=== PATIENT | male | born 1950 | race Caucasian/White ===

== ENCOUNTER 2019-04-18 10:27 | Inpatient (IN) | payer OTHER, MEDICARE ==
[2019-04-18] MEDS ORDERED: methylPREDNISolone SOD SUCCI 125 MG/2 ML VIAL IV STA (10:43)
[2019-04-18] MEDS ORDERED: IPRATROPIUM-ALBUTEROL 3 ML NEB INHALATION STA (10:43)
--- NOTE | 2019-04-18 10:49 | ED ---
General Adult HPI - General Chief complaint: Shortness of Breath Stated complaint: DONNA Time Seen by Provider: 04/18/19 10:29 Source: patient, RN notes reviewed Mode of arrival: EMS Limitations: no limitations - History of Present Illness Initial comments: Patient is a pleasant 69-year-old male presenting to the emergency Department with difficulty in breathing. Onset of symptoms was just a couple of days ago. Patient believes he has had some fevers. Patient has some chest congestion. Patient is able to cough up mucus that has been green at times. Patient does have some mild leg swelling however this is chronic and actually somewhat improved for him. No calf pain. No history of COPD however patient is a former smoker. - Related Data Home Medications Medication Instructions Recorded Confirmed Atorvastatin [Lipitor] 20 mg PO HS 04/18/19 04/18/19 Fluticasone Nasal [place] [Flonase 1 - 2 spr EA NOSTRIL DAILY PRN 04/18/19 04/18/19 Nasal [place]] Lidocaine 5% Oint [Xylocaine 5% 1 applic TOPICAL DAILY PRN 04/18/19 04/18/19 Oint] Naproxen 500 mg PO BID PRN 04/18/19 04/18/19 glipiZIDE [Glucotrol] 5 mg PO AC-BRKFST 04/18/19 04/18/19 metFORMIN HCL [metFORMIN HCL ER 1,000 mg PO DAILY 04/18/19 04/18/19 Osmotic] Allergies Allergy/AdvReac Type Severity Reaction Status Date / Time No Known Allergies Allergy Verified 04/18/19 11:38 Review of Systems ROS Statement: Those systems with pertinent positive or pertinent negative responses have been documented in the HPI. ROS Other: All systems not noted in ROS Statement are negative. Constitutional: Reports: fever Eyes: Denies: eye pain ENT: Denies: ear pain Respiratory: Reports: cough, dyspnea Cardiovascular: Denies: chest pain Endocrine: Reports: fatigue Gastrointestinal: Denies: abdominal pain Genitourinary: Denies: dysuria Musculoskeletal: Denies: back pain Skin: Denies: rash Neurological: Denies: weakness Past Medical History Past Medical History: Diabetes Mellitus Additional Past Medical History / Comment(s): DM type 2 History of Any Multi-Drug Resistant Organisms: None Reported Past Surgical History: Hernia Repair Additional Past Surgical History / Comment(s): hernia surgery x3, benign tumor removal x2 in lower back Past Psychological History: PTSD Smoking Status: Former smoker Past Alcohol Use History: None Reported Past Drug Use History: Marijuana General Exam Limitations: no limitations General appearance: alert Head exam: Present: normocephalic Eye exam: Present: normal appearance, PERRL ENT exam: Present: normal oropharynx Neck exam: Present: normal inspection Respiratory exam: Present: wheezes, decreased breath sounds Cardiovascular Exam: Present: regular rate, normal rhythm GI/Abdominal exam: Present: soft. Absent: tenderness Extremities exam: Present: pedal edema (+1 bilateral). Absent: calf tenderness Neurological exam: Present: alert Psychiatric exam: Present: normal affect, normal mood Skin exam: Present: normal color Course Vital Signs 04/18/19 04/18/19 04/18/19 10:28 10:38 11:39 Temperature 98.1 F Pulse Rate 92 90 Respiratory 24 24 Rate Blood Pressure 170/98 O2 Sat by Pulse 93 L Oximetry 04/18/19 04/18/19 11:49 12:21 Temperature 97.7 F Pulse Rate 88 93 Respiratory 16 Rate Blood Pressure 161/74 O2 Sat by Pulse 95 Oximetry - Reevaluation(s) Reevaluation #1: 04/18/19 14:33 There is concern for sepsis diagnosed at 1433. A culture and lactic acid have been ordered. IV antibiotics will be ordered. EKG Findings - EKG Comments: EKG Findings:: Normal sinus rhythm and 90. HI 192. QRS 102. QT 370. QTc 452. Normal axis. Normal QRS. No acute ST change. Medical Decision Making - Medical Decision Making Patient reevaluated and updated. Dr. Bang has been paged for admission covering for Dr. Paige. - Lab Data Result diagrams: 04/18/19 10:48 04/18/19 10:48 Lab Results 04/18/19 04/18/19 04/18/19 Range/Units 10:48 10:48 10:48 WBC 9.6 (3.8-10.6) k/uL RBC 4.55 (4.30-5.90) m/uL Hgb 13.2 (13.0-17.5) gm/dL Hct 41.0 (39.0-53.0) % MCV 90.1 (80.0-100.0) fL MCH 29.0 (25.0-35.0) pg MCHC 32.2 (31.0-37.0) g/dL RDW 13.8 (11.5-15.5) % Plt Count 363 (150-450) k/uL Neutrophils % 69 % Lymphocytes % 20 % Monocytes % 7 % Eosinophils % 0 % Basophils % 1 % Neutrophils # 6.6 (1.3-7.7) k/uL Lymphocytes # 2.0 (1.0-4.8) k/uL Monocytes # 0.6 (0-1.0) k/uL Eosinophils # 0.0 (0-0.7) k/uL Basophils # 0.1 (0-0.2) k/uL PT (9.0-12.0) sec INR (<1.2) APTT (22.0-30.0) sec D-Dimer (<0.60) mg/L FEU Sodium 139 (137-145) mmol/L Potassium 4.2 (3.5-5.1) mmol/L Chloride 102 (98-107) mmol/L Carbon Dioxide 31 H (22-30) mmol/L Anion Gap 6 mmol/L BUN 12 (9-20) mg/dL Creatinine 0.54 L (0.66-1.25) mg/dL Est GFR (CKD-EPI)AfAm >90 (>60 ml/min/1.73 sqM) Est GFR (CKD-EPI)NonAf >90 (>60 ml/min/1.73 sqM) Glucose 146 H (74-99) mg/dL Plasma Lactic Acid Mateo 1.7 (0.7-2.0) mmol/L Calcium 8.6 (8.4-10.2) mg/dL Total Bilirubin 0.6 (0.2-1.3) mg/dL AST 62 H (17-59) U/L ALT 41 (4-49) U/L Alkaline Phosphatase 127 H (38-126) U/L NT-Pro-B Natriuret Pep pg/mL Total Protein 7.2 (6.3-8.2) g/dL Albumin 3.7 (3.5-5.0) g/dL Influenza Type A RNA (Not Detectd) Influenza Type B (PCR) (Not Detectd) 04/18/19 04/18/19 04/18/19 Range/Units 10:48 10:48 10:48 WBC (3.8-10.6) k/uL RBC (4.30-5.90) m/uL Hgb (13.0-17.5) gm/dL Hct (39.0-53.0) % MCV (80.0-100.0) fL MCH (25.0-35.0) pg MCHC (31.0-37.0) g/dL RDW (11.5-15.5) % Plt Count (150-450) k/uL Neutrophils % % Lymphocytes % % Monocytes % % Eosinophils % % Basophils % % Neutrophils # (1.3-7.7) k/uL Lymphocytes # (1.0-4.8) k/uL Monocytes # (0-1.0) k/uL Eosinophils # (0-0.7) k/uL Basophils # (0-0.2) k/uL PT 10.4 (9.0-12.0) sec INR 1.0 (<1.2) APTT 24.4 (22.0-30.0) sec D-Dimer 1.90 H (<0.60) mg/L FEU Sodium (137-145) mmol/L Potassium (3.5-5.1) mmol/L Chloride (98-107) mmol/L Carbon Dioxide (22-30) mmol/L Anion Gap mmol/L BUN (9-20) mg/dL Creatinine (0.66-1.25) mg/dL Est GFR (CKD-EPI)AfAm (>60 ml/min/1.73 sqM) Est GFR (CKD-EPI)NonAf (>60 ml/min/1.73 sqM) Glucose (74-99) mg/dL Plasma Lactic Acid Mateo (0.7-2.0) mmol/L Calcium (8.4-10.2) mg/dL Total Bilirubin (0.2-1.3) mg/dL AST (17-59) U/L ALT (4-49) U/L Alkaline Phosphatase (38-126) U/L NT-Pro-B Natriuret Pep 242 pg/mL Total Protein (6.3-8.2) g/dL Albumin (3.5-5.0) g/dL Influenza Type A RNA (Not Detectd) Influenza Type B (PCR) (Not Detectd) 04/18/19 Range/Units 11:40 WBC (3.8-10.6) k/uL RBC (4.30-5.90) m/uL Hgb (13.0-17.5) gm/dL Hct (39.0-53.0) % MCV (80.0-100.0) fL MCH (25.0-35.0) pg MCHC (31.0-37.0) g/dL RDW (11.5-15.5) % Plt Count (150-450) k/uL Neutrophils % % Lymphocytes % % Monocytes % % Eosinophils % % Basophils % % Neutrophils # (1.3-7.7) k/uL Lymphocytes # (1.0-4.8) k/uL Monocytes # (0-1.0) k/uL Eosinophils # (0-0.7) k/uL Basophils # (0-0.2) k/uL PT (9.0-12.0) sec INR (<1.2) APTT (22.0-30.0) sec D-Dimer (<0.60) mg/L FEU Sodium (137-145) mmol/L Potassium (3.5-5.1) mmol/L Chloride (98-107) mmol/L Carbon Dioxide (22-30) mmol/L Anion Gap mmol/L BUN (9-20) mg/dL Creatinine (0.66-1.25) mg/dL Est GFR (CKD-EPI)AfAm (>60 ml/min/1.73 sqM) Est GFR (CKD-EPI)NonAf (>60 ml/min/1.73 sqM) Glucose (74-99) mg/dL Plasma Lactic Acid Mateo (0.7-2.0) mmol/L Calcium (8.4-10.2) mg/dL Total Bilirubin (0.2-1.3) mg/dL AST (17-59) U/L ALT (4-49) U/L Alkaline Phosphatase (38-126) U/L NT-Pro-B Natriuret Pep pg/mL Total Protein (6.3-8.2) g/dL Albumin (3.5-5.0) g/dL Influenza Type A RNA Not Detected (Not Detectd) Influenza Type B (PCR) Not Detected (Not Detectd) - Radiology Data Radiology results: report reviewed (CT angios chest shows no pulmonary embolism. Evaluation of segmental arteries. Groundglass opacities throughout the lungs for possible multifocal pneumonia inflammation for pulmonary edema. Mild aneurysm dilation of the descending thoracic aorta), image reviewed (Chest x-ray shows cardiomegaly and pulmonary venous congestion) Critical Care Time Critical Care Time: Yes Total Critical Care Time: 33 Disposition Clinical Impression: Multifocal pneumonia, Sepsis Disposition: ADMITTED IP TO THIS HOSP Is patient prescribed a controlled substance at d/c from ED?: No Referrals: Joe Paige MD [Primary Care Provider] - 1-2 days Decision Time: 14:33
[2019-04-18 11:05] LABS: Basophils # (A) 0.1 k/uL (0-0.2); Basophils % (A) 1 %; Eosinophils % (A) 0 %; HGB 13.2 gm/dL (13.0-17.5); Lymphocytes % (A) 20 %; MCHC 32.2 g/dL (31.0-37.0); MCV 90.1 fL (80.0-100.0); Mean Platelet Volume 7.3; Monocytes # (A) 0.6 k/uL (0-1.0); Monocytes % (A) 7 %; Neutrophils # (A) 6.6 k/uL (1.3-7.7); Neutrophils % (A) 69 %; Platelet Count 363 k/uL (150-450); RBC 4.55 m/uL (4.30-5.90); RDW 13.8 % (11.5-15.5); WBC 9.6 k/uL (3.8-10.6)
[2019-04-18 11:16] LABS: ALT 41 U/L (4-49); AST 62 U/L (17-59); African American GFR (CKD) >90 (>60 ml/min/1.73 sqM); Albumin 3.7 g/dL (3.5-5.0); Alkaline Phosphatase 127 U/L (38-126); Anion Gap 6 mmol/L; Blood Urea Nitrogen 12 mg/dL (9-20); Calcium 8.6 mg/dL (8.4-10.2); Carbon Dioxide 31 mmol/L (22-30); Chloride 102 mmol/L (98-107); Glucose 146 mg/dL (74-99); Non-African American GFR(CKD) >90 (>60 ml/min/1.73 sqM); Potassium 4.2 mmol/L (3.5-5.1); Sodium 139 mmol/L (137-145); Total Bilirubin 0.6 mg/dL (0.2-1.3); Total Protein 7.2 g/dL (6.3-8.2)
[2019-04-18 11:34] LABS: Partial Thromboplastin Time 24.4 sec (22.0-30.0); Prothrombin Time 10.4 sec (9.0-12.0)
--- NOTE | 2019-04-18 13:17 | XR ---
EXAMINATION TYPE: XR chest 2V DATE OF EXAM: 04/18/2019 COMPARISON: 04/20/2013 HISTORY: Shortness of breath TECHNIQUE: Frontal and lateral views of the chest are obtained. FINDINGS: Scattered senescent parenchymal changes noted. Hyperinflation compatible with COPD. There is cardiomegaly with pulmonary venous congestion and possible interstitial edema. Underlying in filtrates of other etiology are difficult to exclude. Correlate clinically and progress studies are a dvised. Mediastinal structures are stable and grossly unremarkable. No evidence for hilar prominence. Degenerative changes dorsal spine. IMPRESSION: 1. There is cardiomegaly with pulmonary venous congestion and possible interstitial edema. Underlying infiltrates of other etiology are difficult to exclude. Correlate clinically and progress studies taj coburn.
--- NOTE | 2019-04-18 13:26 | CT ---
EXAMINATION TYPE: CT angio chest DATE OF EXAM: 04/18/2019 COMPARISON: NONE HISTORY: severe shortness of breath CT DLP: 1021.9 mGycm. Automated Exposure Control for Dose Reduction was Utilized. CONTRAST: CTA scan of the thorax is performed with IV Contrast, patient injected with 100 mL of Isovue 370, pul monary embolism protocol. MIP Images are created on CT scanner and reviewed. FINDINGS: LUNGS: Multifocal groundglass opacities are seen throughout the lungs most pronounced at the lung api ajith. Given the nondependent gradient effect these much more likely relate to multifocal pneumonia rat her than confluent pulmonary edema. More confluent right middle lobe airspace disease with air bronch ograms is also seen on series 401 image 87. There is no pleural effusion or pneumothorax seen. The tracheobronchial tree is patent. MEDIASTINUM: There is suboptimal enhancement of the pulmonary artery and its branches, there is no ce ntral evidence for pulmonary embolism. Nondiagnostic evaluation of the subsegmental pulmonary arterie s. There are no greater than 1 cm hilar or mediastinal lymph nodes. No cardiomegaly or pericardial effusion is seen. Mild aneurysmal dilatation of the descending thoracic aorta measuring 3.7 cm. OTHER: No additional significant abnormality is seen. IMPRESSION: 1. No central pulmonary embolus. Suboptimal bolus timing rendering evaluation of the subsegmental pul monary arteries nondiagnostic. 2. Innumerable multifocal groundglass opacities throughout both lungs. Primary diagnostic considerati on is for multifocal pneumonia. Inflammatory etiology or confluent areas of pulmonary edema are consi dered less likely. 3. Mild aneurysmal dilatation of the descending thoracic aorta.
[2019-04-18] MEDS ORDERED: PNEUMONIA PROTOCOL UTILIZED 1 EACH MISC PO PRN (14:34)
[2019-04-18] MEDS ORDERED: LEVOFLOXACIN 750MG-D5W PMX 750 MG in DEXTROSE/WATER 1 150ML.BAG IVPB STA (14:34)
[2019-04-18] MEDS ORDERED: IPRATROPIUM-ALBUTEROL 3 ML NEB INHALATION PRN (14:34)
[2019-04-18] MEDS ORDERED: PIPERACILLIN-TAZOBACTAM 3.375 GM in SODIUM CHLORIDE 0.9% 100 ML IVPB STA (14:34)
[2019-04-18] MEDS: SODIUM CHLORIDE 0.9% 1,000 ML IV SCH (17:19)
[2019-04-18] MEDS: OSELTAMIVIR 75 MG CAP PO SCH ×2 (17:21→21:22)
[2019-04-18] MEDS: IPRATROPIUM-ALBUTEROL 3 ML NEB INHALATION SCH ×2 (17:30→20:33)
[2019-04-19] MEDS: PIPERACILLIN-TAZOBACTAM 3.375 GM in SODIUM CHLORIDE 0.9% 100 ML IVPB SCH ×3 (01:10→17:22)
[2019-04-19] MEDS: SODIUM CHLORIDE 0.9% 1,000 ML IV SCH ×2 (06:14→12:22)
[2019-04-19] MEDS: IPRATROPIUM-ALBUTEROL 3 ML NEB INHALATION SCH ×4 (07:40→19:22)
[2019-04-19] MEDS: OSELTAMIVIR 75 MG CAP PO SCH ×2 (07:51→21:22)
--- NOTE | 2019-04-19 08:10 | XR ---
EXAMINATION TYPE: XR chest 2V DATE OF EXAM: 04/19/2019 COMPARISON: 04/18/2019 TECHNIQUE: PA and lateral views submitted. HISTORY: Difficulty breathing FINDINGS: Heart is prominent. No pleural effusion or pneumothorax. Interval slight reduction in the appearance of the interstitium. Bilateral pleural thickening. Hypertrophic and degenerative change of the spine. Stable pleural-based thickening. IMPRESSION: 1. Persistent increased interstitium slightly improved may represent mild venous congestion or inters titial pneumonitis, pneumonia.
[2019-04-19] MEDS: predniSONE 10 MG TAB PO SCH (15:20)
[2019-04-19] MEDS: LEVOFLOXACIN 750MG-D5W PMX 750 MG in DEXTROSE/WATER 1 150ML.BAG IVPB SCH (15:20)
[2019-04-19] MEDS: SYMBICORT 160-4.5 MCG INHALER INHALATION SCH (19:22)
[2019-04-19 20:32] LABS: Glucose,Whole Blood 264 mg/dL (75-99)
--- NOTE | 2019-04-19 20:38 | CONS ---
CONSULTATION PULMONARY/CRITICAL CARE CONSULTATION: DATE OF SERVICE: 04/19/2019 This is a 69-year-old male whom I am seeing have seen because of "shortness of breath." He apparently was brought by EMS to the emergency room yesterday on April 18 at 10:27 a.m. The patient presented with complaints of progressive shortness of breath. He apparently had been having symptoms for a couple of days and the symptoms got worse. In addition, he had fever and chills, cough, chest congestion, chest tightness and phlegm production. The phlegm was described as being "brown." There was no blood. The patient denied any chest pain or chest discomfort. There was no nausea, vomiting or diarrhea. There were no genitourinary complaints. His other major complaint was leg swelling. The patient is feeling better today. He has only been in the hospital for about a day and a half or so. His breathing has improved; probably 60% to 70% improved. The patient's primary care physician is Dr. Joe Paige. He apparently has never seen a lung doctor in the past. HOME MEDICATIONS: His home medications include Lipitor, Flonase nasal spray, xylocaine ointment, naproxen, Glucotrol and metformin. ALLERGIES: DENIED. MEDICAL HISTORY: Positive for diabetes mellitus, hyperlipidemia and probable COPD from previous tobacco use. SURGICAL HISTORY: Surgical history includes hernia repair. He has also had benign tumor removal x2 in his lower back. He does suffer from post-traumatic stress disorder. SOCIAL HISTORY: Positive for about 25 years or so of tobacco use. He does not smoke currently. He denies any alcohol use. He does smoke marijuana. FAMILY HISTORY: Noncontributory. Both mother and father were apparently relatively healthy. REVIEW OF SYSTEMS: CONSTITUTIONAL: Fever, chills. NEUROLOGIC: Negative. HEENT: Negative. CARDIOVASCULAR: Negative. PULMONARY: Shortness of breath, chest tightness, wheezing, cough, chest congestion and brown phlegm production. GI: Negative. : Negative. RHEUMATOLOGIC: Negative. IMMUNOLOGIC: Negative. ENDOCRINOLOGIC: Negative. DERMATOLOGIC: Negative. PHYSICAL EXAMINATION: VITAL SIGNS: Current vital signs are reviewed. His temperature is 97.5, heart rate 93, respiratory rate 16, blood pressure 157/81, mean 106, room-air saturation 94%. GENERAL APPEARANCE: He appears in no acute distress. There is no audible wheezing, use of accessory muscles or conversational dyspnea. HEENT EXAMINATION: Grossly unremarkable. No supplemental oxygen at this time. NECK: Supple. Full range of motion. No adenopathy. Neck veins are flat. CARDIOVASCULAR EXAMINATION: Regular rhythm and rate. S1, S2 normal. Heart sounds are distant. Heart rate is 88 beats per minute. LUNGS: Some coarse expiratory rhonchi and wheezes. Breath sounds are diminished. There is prolongation. ABDOMEN: Soft but obese. Bowel sounds are heard. EXTREMITIES: Intact. Minimal edema. No cyanosis or clubbing. SKIN: Without rash. NEUROLOGIC: Neurologic examination is brief but nonfocal. LAB DATA: Reviewed. White count 9.6, hemoglobin 13.2, hematocrit 41.0, platelet count 363,000. PT, INR, PTT all normal. D-dimer was 1.90. Sodium 139, potassium 4.2, chloride 102, CO2 31. Anion gap is 6. BUN and creatinine were 12 and 0.54. Glucose 146. Lactate 1.7, AST 62. N-terminal proBNP was 242. Influenza A and B were negative. A CT angiogram was done. It was done on April 18. It showed no central pulmonary embolus. There were also innumerable multifocal ground-glass opacities throughout both lungs. Considerations include multifocal pneumonia or other inflammatory disease processes. Areas of pulmonary edema are also considered possible. Microbiology, including blood cultures, are currently pending or negative. MEDICATIONS: Medications are reviewed. He is on updrafts with albuterol and Atrovent, Levaquin, Tamiflu, Zosyn and a basic IV at 100 mL/hour. ASSESSMENT: 1. Chronic obstructive pulmonary disease exacerbation complicated by purulent tracheobronchitis, without kimberly pneumonia. 2. Possible patchy areas of pneumonitis or other inflammatory lung process. 3. History of diabetes mellitus. 4. History of hyperlipidemia. 5. Prior history of tobacco use. 6. Obesity. 7. History of post-traumatic stress disorder. 8. History of marijuana use. PLAN: The patient is on appropriate medications. I will add Symbicort 160/4.5 two puffs twice a day. Additional recommendations and suggestions are forthcoming. Currently the patient is on albuterol and Atrovent updrafts, antibiotics in the form of Levaquin and Zosyn, and Tamiflu. Additional recommendations and suggestions are forthcoming. I will add some corticosteroids to the regimen. Will also add Symbicort. MMODL / IJN: [id number] /
--- NOTE | 2019-04-19 21:52 | P.HPIM ---
History of Present Illness H&P Date: 04/19/19 Chief Complaint: Shortness of breath History of presenting complaint: This is a 69-year-old patient of Dr. Joe Paige. Chronic stable medical conditions include diabetes, Eva arthritis, GERD. For 3 days patient started becoming increasingly short of breath. Cough with green sputum. Positive fever and chills. Decreased appetite. Wheezing. Not getting better. Getting worse. Review of systems: GEN.: Fever and chills times EYES: None HEENT: None NECK: None RESPIRATORY: As above CARDIOVASCULAR: None GASTROINTESTINAL: Heartburn GENITOURINARY: None MUSCULOSKELETAL: [Pain in any joints LYMPHATICS: None HEMATOLOGICAL: None PSYCHIATRY: None NEUROLOGICAL: None Past medical history to include: Diabetes, Eva arthritis, post traumatic stress disorder, GERD Social history: Patient smoked a pack and half a close to 40 years, stopped 15 years ago. Ventricular: The past. Does marijuana occasionally. Lives alone Family history: Patient does not know his parents Physical examination: VITAL SIGNS: [98.1-92-24-170/98, 93% on 2 L-upon presentation GENERAL: [BMI 46.1, sitting up tired. EYES: Pupils equal. Conjunctiva normal. HEENT: External appearance of nose and ears normal, oral cavity grossly normal. NECK: JVD not raised; masses not palpable. HEART: First and second heart sounds are normal; no edema. LUNGS: Respiratory rate increased, decreased breath sounds prolonged expiration and wheezing. ABDOMEN: Soft, nontender, liver spleen not palpable, no masses palpable. PSYCH: [Alert and oriented x3; mood and affect anxious l. NEUROLOGICAL: Cranial nerves grossly intact; no facial asymmetry, power and sensation grossly intact. LYMPHATICS: No lymph nodes palpable in the axilla and neck INVESTIGATIONS, reviewed in the clinical context: White count 9.6 include 13.2 platelets 363 potassium 4.2 bun 12 creatinine 0.54 ProBNP 242 Accu-Cheks 264 Influenza type A, type B-both negative Chest x-ray film personally reviewed by me-bilateral scattered infiltrates Assessment: -Acute COPD exacerbation in an ex-smoker -Bilateral scattered infiltrates most suggestive of viral pneumonitis, bacterial infection cannot be ruled out -Diabetes mellitus type 2, uncontrolled with hyperglycemia Plan: Started on IV Zosyn and Levaquin. DuoNeb. IV fluids. Oral steroids. Home medications resumed. Accu-Cheks will be followed. Gonzálezx for DVT prophylaxis. Care was discussed with the patient question answered. Pulmonary was consulted Past Medical History Past Medical History: Diabetes Mellitus Additional Past Medical History / Comment(s): DM type 2 History of Any Multi-Drug Resistant Organisms: None Reported Past Surgical History: Hernia Repair Additional Past Surgical History / Comment(s): hernia surgery x3, benign tumor removal x2 in lower back, appendix removed as a child Past Anesthesia/Blood Transfusion Reactions: No Reported Reaction Past Psychological History: PTSD Smoking Status: Former smoker Past Alcohol Use History: None Reported Past Drug Use History: Marijuana - Past Family History Father Additional Family Medical History / Comment(s): patient does not know his parents Mother Additional Family Medical History / Comment(s): patient does not know his parents Medications and Allergies Home Medications Medication Instructions Recorded Confirmed Type Atorvastatin [Lipitor] 20 mg PO HS 04/18/19 04/18/19 History Fluticasone Nasal [place] [Flonase 1 - 2 spr EA NOSTRIL DAILY PRN 04/18/19 04/18/19 History Nasal [place]] Lidocaine 5% Oint [Xylocaine 5% 1 applic TOPICAL DAILY PRN 04/18/19 04/18/19 History Oint] Naproxen 500 mg PO BID PRN 04/18/19 04/18/19 History glipiZIDE [Glucotrol] 5 mg PO AC-BRKFST 04/18/19 04/18/19 History metFORMIN HCL [metFORMIN HCL ER 1,000 mg PO DAILY 04/18/19 04/18/19 History Osmotic] Allergies Allergy/AdvReac Type Severity Reaction Status Date / Time No Known Allergies Allergy Verified 04/18/19 11:38 Physical Exam Vitals: Vital Signs Temp Pulse Pulse Resp BP BP Pulse Ox 04/19/19 07:55 97.8 F 96 21 157/98 92 L 04/19/19 07:52 92 18 04/19/19 07:41 94 18 94 L 04/18/19 20:47 96 04/18/19 20:33 92 04/18/19 18:26 98.0 F 89 16 164/85 99 04/18/19 17:43 94 04/18/19 17:30 90 04/18/19 17:06 92 18 144/67 94 L 04/18/19 12:21 97.7 F 93 16 161/74 95 02/11/20 11:49 88 04/18/19 11:39 90 Intake and Output 04/18/19 04/19/19 04/19/19 22:59 06:59 14:59 Other: # Voids 1 Weight 137.438 kg Results CBC & Chem 7: 04/18/19 10:48 04/18/19 10:48 Labs: Abnormal Lab Results - Last 24 Hours (Table) 04/18/19 04/18/19 Range/Units 10:48 10:48 D-Dimer 1.90 H (<0.60) mg/L FEU Carbon Dioxide 31 H (22-30) mmol/L Creatinine 0.54 L (0.66-1.25) mg/dL Glucose 146 H (74-99) mg/dL AST 62 H (17-59) U/L Alkaline Phosphatase 127 H (38-126) U/L Thrombosis Risk Factor Assmnt - Choose All That Apply Any of the Below Risk Factors Present?: No Other Risk Factors: No Other congenital or acquired thrombophilia - If yes, enter type in comment: No Thrombosis Risk Factor Assessment Level: Very Low Risk
[2019-04-20] MEDS: PIPERACILLIN-TAZOBACTAM 3.375 GM in SODIUM CHLORIDE 0.9% 100 ML IVPB SCH ×3 (00:31→17:40)
[2019-04-20] MEDS: ENOXAPARIN 40 MG/0.4 ML SYRINGE SQ SCH ×2 (00:31→07:34)
[2019-04-20] MEDS: SODIUM CHLORIDE 0.9% 1,000 ML IV SCH ×3 (06:50→16:53)
[2019-04-20 07:04] LABS: Glucose,Whole Blood 161 mg/dL (75-99)
[2019-04-20] MEDS: OSELTAMIVIR 75 MG CAP PO SCH ×2 (07:29→21:10)
[2019-04-20] MEDS: predniSONE 10 MG TAB PO SCH (07:34)
[2019-04-20] MEDS: IPRATROPIUM-ALBUTEROL 3 ML NEB INHALATION SCH ×4 (08:38→20:41)
[2019-04-20] MEDS: SYMBICORT 160-4.5 MCG INHALER INHALATION SCH ×2 (08:39→20:41)
[2019-04-20 11:52] LABS: Glucose,Whole Blood 185 mg/dL (75-99)
--- NOTE | 2019-04-20 15:07 | P.PN ---
Subjective Progress Note Date: 04/20/19 Principal diagnosis: Chronic obstructive pulmonary disease exacerbation, platelet of a purulent tracheal bronchitis without pneumonia, possible patchy areas of pneumonitis On April 20/2020 patient seen in follow-up, a general medical floor, he is awake and alert, in no acute distress, doing much better on today's exam, he is on 3 L of oxygen and the pulse ox is 96%. Blood and sputum cultures have shown no growth. Patient continues on Zosyn, Levaquin, and Tamiflu. Objective - Vital Signs Vital signs: Vital Signs Temp 98.5 F 04/20/19 07:00 Pulse 92 04/20/19 12:01 Resp 20 04/20/19 07:00 BP 146/85 04/20/19 07:00 Pulse Ox 96 04/20/19 08:39 Intake & Output 04/19/19 04/20/19 04/20/19 18:59 06:59 18:59 Intake Total 592 296 Balance 592 296 Intake: Oral 592 296 Other: Voiding Method Urinal # Voids 3 2 3 - Exam GENERAL EXAM: Alert, very pleasant, 69-year-old white male, 3 L of oxygen with pulse ox of 96%, comfortable in no apparent distress. HEAD: Normocephalic/atraumatic. EYES: Normal reaction of pupils, equal size. Conjunctiva pink, sclera white. NOSE: Clear with pink turbinates. THROAT: No erythema or exudates. NECK: No masses, no JVD, no thyroid enlargement, no adenopathy. CHEST: No chest wall deformity. Symmetrical expansion. LUNGS: Equal air entry with bibasilar crackles CVS: Regular rate and rhythm, normal S1 and S2, no gallops, no murmurs, no rubs ABDOMEN: Soft, nontender. No hepatosplenomegaly, normal bowel sounds, no guarding or rigidity. EXTREMITIES: No clubbing, no edema, no cyanosis, 2+ pulses and upper and lower extremities. MUSCULOSKELETAL: Muscle strength and tone normal. SPINE: No scoliosis or deformity SKIN: No rashes CENTRAL NERVOUS SYSTEM: Alert and oriented -3. No focal deficits, tone is normal in all 4 extremities. PSYCHIATRIC: Alert and oriented -3. Appropriate affect. Intact judgment and insight. - Labs CBC & Chem 7: 04/18/19 10:48 04/18/19 10:48 Labs: Abnormal Lab Results - Last 24 Hours (Table) 04/19/19 04/20/19 04/20/19 Range/Units 20:31 07:02 11:50 POC Glucose (mg/dL) 264 H 161 H 185 H (75-99) mg/dL Microbiology - Last 24 Hours (Table) 04/18/19 10:48 Blood Culture - Preliminary Blood No Growth after 48 hours 04/19/19 11:12 Gram Stain - Final Sputum Sputum Culture - Final Assessment and Plan Plan: Assessment: #1. Acute exacerbation of chronic obstructive pulmonary disease complicated with purulent tracheobronchitis done for pneumonia #2. Possible PAC areas of pneumonitis or other inflammatory process #3. History of diabetes mellitus #4. History of hyperlipidemia #5. Prior history of tobacco use #6. Obesity #7. History of posttraumatic stress disorder #8. History of marijuana use Plan: Continue current antibiotic, will await final results of the sputum culture, no fever or chills, patient is breathing easier, feeling better, continue current medical treatment. Continue nebulized bronchodilators, Symbicort. Increase activity as tolerated, I performed a history & physical examination of the patient and discussed their management with my nurse practitioner, Oksana Hopkins. I reviewed the nurse practitioner's note and agree with the documented findings and plan of care. Lung sounds are positive for diminished breath sounds. The findings and the impression was discussed with the patient. I attest to the documentation by the nurse practitioner. Time with Patient: Less than 30
[2019-04-20] MEDS: LEVOFLOXACIN 750MG-D5W PMX 750 MG in DEXTROSE/WATER 1 150ML.BAG IVPB SCH (15:37)
[2019-04-20 17:09] LABS: Glucose,Whole Blood 279 mg/dL (75-99)
[2019-04-20 19:54] LABS: Glucose,Whole Blood 224 mg/dL (75-99)
[2019-04-20 21:35] LABS: Glucose,Whole Blood 173 mg/dL (75-99)
[2019-04-20] MEDS: INSULIN ASPART (NovoLOG) 100 UNIT/ML VIAL SQ SCH (21:57)
--- NOTE | 2019-04-20 23:17 | P.PN ---
Subjective Progress Note Date: 04/20/19 Principal diagnosis: Acute COPD exacerbation with purulent tracheobronchitis This is a 69-year-old patient of Dr. Joe Paige. Chronic stable medical conditions include diabetes, Eva arthritis, GERD. For 3 days patient started becoming increasingly short of breath. Cough with green sputum. Positive fever and chills. Decreased appetite. Wheezing. Not getting better. Getting worse.presents to ER. INVESTIGATIONS, reviewed in the clinical context: White count 9.6 include 13.2 platelets 363 potassium 4.2 bun 12 creatinine 0.54 ProBNP 242 Accu-Cheks 264 Influenza type A, type B-both negative Chest x-ray film personally reviewed by me-bilateral scattered infiltrates 04/20/2019 Patient is currently sitting in the chair comfortably. Currently saturating on oxygen via nasal cannula at 3 L. Continued on antibiotics in the form of Levaquin, Zosyn and Tamiflu. Cultures showed no growth. No complaints of chest pain. No fever no chills. No headache or dizziness or lightheadedness. No nausea vomiting or abdominal pain or diarrhea. pro calcitonin not elevated. Current medications reviewed. Objective - Vital Signs Vital signs: Vital Signs Temp 98 F 04/20/19 15:00 Pulse 92 04/20/19 16:29 Resp 12 04/20/19 15:00 BP 151/88 04/20/19 15:00 Pulse Ox 92 L 04/20/19 15:00 Intake & Output 04/19/19 04/20/19 04/20/19 18:59 06:59 18:59 Intake Total 592 296 Balance 592 296 Intake: Oral 592 296 Other: Voiding Method Urinal # Voids 3 2 3 - Exam GENERAL: [BMI 46.1, sitting up tired. EYES: Pupils equal. Conjunctiva normal. HEENT: External appearance of nose and ears normal, oral cavity grossly normal. NECK: JVD not raised; masses not palpable. HEART: First and second heart sounds are normal; no edema. LUNGS: Respiratory rate increased, decreased breath sounds prolonged expiration and wheezing. ABDOMEN: Soft, nontender, liver spleen not palpable, no masses palpable. PSYCH: [Alert and oriented x3; mood and affect anxious l. NEUROLOGICAL: Cranial nerves grossly intact; no facial asymmetry, power and sensation grossly intact. LYMPHATICS: No lymph nodes palpable in the axilla and neck - Labs CBC & Chem 7: 02/11/20 10:48 04/18/19 10:48 Labs: Abnormal Lab Results - Last 24 Hours (Table) 04/19/19 04/20/19 04/20/19 Range/Units 20:31 07:02 11:50 POC Glucose (mg/dL) 264 H 161 H 185 H (75-99) mg/dL 04/20/19 Range/Units 17:06 POC Glucose (mg/dL) 279 H (75-99) mg/dL Microbiology - Last 24 Hours (Table) 04/18/19 10:48 Blood Culture - Preliminary Blood No Growth after 48 hours 04/19/19 11:12 Gram Stain - Final Sputum Sputum Culture - Final Assessment and Plan Assessment: -Acute COPD exacerbation in an ex-smoker -Bilateral scattered infiltrates most suggestive of viral pneumonitis, bacterial infection cannot be ruled out -Diabetes mellitus type 2, uncontrolled with hyperglycemia -Hyperlipidemia - Morbid obesity BMI 51.2 - PTSD - History of marijuana use - DVT prophylaxis. Plan: Started on IV Zosyn and Levaquin. DuoNeb. Symbicort was added. Patient was continued on IV hydration. We will discontinue IV fluids. Patient is tolerating oral diet.. Oral steroids. will discontinue Tamiflu also. Influenza A and B PCR-. Home medications resumed. Accu-Cheks will be followed. Lovenox for DVT prophylaxis. Care was discussed with the patient question answered. Pulmonary is following. Time with Patient: Greater than 30
[2019-04-21] MEDS: PIPERACILLIN-TAZOBACTAM 3.375 GM in SODIUM CHLORIDE 0.9% 100 ML IVPB SCH ×3 (00:44→15:46)
[2019-04-21 07:06] LABS: Glucose,Whole Blood 127 mg/dL (75-99)
[2019-04-21] MEDS: INSULIN ASPART (NovoLOG) 100 UNIT/ML VIAL SQ SCH ×4 (08:16→20:37)
[2019-04-21] MEDS: SYMBICORT 160-4.5 MCG INHALER INHALATION SCH ×2 (08:18→20:52)
[2019-04-21] MEDS: IPRATROPIUM-ALBUTEROL 3 ML NEB INHALATION SCH ×4 (08:18→20:52)
[2019-04-21 08:23] LABS: Basophils # (A) 0.1 k/uL (0-0.2); Basophils % (A) 1 %; Eosinophils % (A) 1 %; HGB 13.5 gm/dL (13.0-17.5); Lymphocytes # (A) 2.4 k/uL (1.0-4.8); Lymphocytes % (A) 31 %; MCH 28.3 pg (25.0-35.0); MCHC 31.3 g/dL (31.0-37.0); MCV 90.5 fL (80.0-100.0); Monocytes % (A) 12 %; Neutrophils # (A) 4.2 k/uL (1.3-7.7); Neutrophils % (A) 53 %; Platelet Count 500 k/uL (150-450); RBC 4.76 m/uL (4.30-5.90); RDW 13.7 % (11.5-15.5); WBC 7.9 k/uL (3.8-10.6)
[2019-04-21] MEDS: predniSONE 10 MG TAB PO SCH (08:23)
[2019-04-21] MEDS: ENOXAPARIN 40 MG/0.4 ML SYRINGE SQ SCH (08:23)
[2019-04-21] MEDS: OSELTAMIVIR 75 MG CAP PO SCH (08:24)
[2019-04-21 08:36] LABS: African American GFR (CKD) >90 (>60 ml/min/1.73 sqM); Anion Gap 9 mmol/L; Blood Urea Nitrogen 17 mg/dL (9-20); Calcium 9.4 mg/dL (8.4-10.2); Carbon Dioxide 30 mmol/L (22-30); Chloride 100 mmol/L (98-107); Glucose 142 mg/dL (74-99); Non-African American GFR(CKD) >90 (>60 ml/min/1.73 sqM); Potassium 4.5 mmol/L (3.5-5.1); Sodium 139 mmol/L (137-145)
[2019-04-21 12:11] LABS: Glucose,Whole Blood 168 mg/dL (75-99)
--- NOTE | 2019-04-21 12:48 | P.PN ---
Subjective Progress Note Date: 04/21/19 Principal diagnosis: Chronic obstructive pulmonary disease exacerbation, platelet of a purulent tracheal bronchitis without pneumonia, possible patchy areas of pneumonitis On April 20/2020 patient seen in follow-up, a general medical floor, he is awake and alert, in no acute distress, doing much better on today's exam, he is on 3 L of oxygen and the pulse ox is 96%. Blood and sputum cultures have shown no growth. Patient continues on Zosyn, Levaquin, and Tamiflu. On April 21 2019 patient seen in follow-up on general medical floor, still quite bronchospastic and dyspneic on today's exam, cough some thick colored yellow sputum, afebrile, sats 93% on 2 L, no fever or chills, lung sounds reveal diffuse wheezes and rhonchi. Patient remains on Tamiflu, Zosyn, oral prednisone, and nebulized bronchodilators Objective - Vital Signs Vital signs: Vital Signs Temp 97.7 F 04/21/19 07:00 Pulse 92 04/21/19 12:09 Resp 16 04/21/19 08:45 BP 112/69 04/21/19 07:00 Pulse Ox 93 L 04/21/19 08:21 Intake & Output 04/20/19 04/21/19 04/21/19 18:59 06:59 18:59 Intake Total 296 Balance 296 Weight 152.8 kg Intake: Oral 296 Other: Voiding Method Urinal # Voids 3 1 - Exam GENERAL EXAM: Alert, very pleasant, 69-year-old white male, 3 L of oxygen with pulse ox of 96%, comfortable in no apparent distress. HEAD: Normocephalic/atraumatic. EYES: Normal reaction of pupils, equal size. Conjunctiva pink, sclera white. NOSE: Clear with pink turbinates. THROAT: No erythema or exudates. NECK: No masses, no JVD, no thyroid enlargement, no adenopathy. CHEST: No chest wall deformity. Symmetrical expansion. LUNGS: Equal air entry with bibasilar crackles, and diffuse wheezes CVS: Regular rate and rhythm, normal S1 and S2, no gallops, no murmurs, no rubs ABDOMEN: Soft, nontender. No hepatosplenomegaly, normal bowel sounds, no guarding or rigidity. EXTREMITIES: No clubbing, no edema, no cyanosis, 2+ pulses and upper and lower extremities. MUSCULOSKELETAL: Muscle strength and tone normal. SPINE: No scoliosis or deformity SKIN: No rashes CENTRAL NERVOUS SYSTEM: Alert and oriented -3. No focal deficits, tone is normal in all 4 extremities. PSYCHIATRIC: Alert and oriented -3. Appropriate affect. Intact judgment and insight. - Labs CBC & Chem 7: 04/21/19 07:48 04/21/19 07:48 Labs: Abnormal Lab Results - Last 24 Hours (Table) 04/20/19 04/20/19 04/20/19 Range/Units 17:06 19:52 21:34 Plt Count (150-450) k/uL Creatinine (0.66-1.25) mg/dL Glucose (74-99) mg/dL POC Glucose (mg/dL) 279 H 224 H 173 H (75-99) mg/dL 04/21/19 04/21/19 04/21/19 Range/Units 07:05 07:48 07:48 Plt Count 500 H (150-450) k/uL Creatinine 0.63 L (0.66-1.25) mg/dL Glucose 142 H (74-99) mg/dL POC Glucose (mg/dL) 127 H (75-99) mg/dL 04/21/19 Range/Units 12:10 Plt Count (150-450) k/uL Creatinine (0.66-1.25) mg/dL Glucose (74-99) mg/dL POC Glucose (mg/dL) 168 H (75-99) mg/dL Microbiology - Last 24 Hours (Table) 04/18/19 10:48 Blood Culture - Preliminary Blood No Growth after 48 hours Assessment and Plan Plan: Assessment: #1. Acute exacerbation of chronic obstructive pulmonary disease complicated with purulent tracheobronchitis done for pneumonia #2. Possible PAC areas of pneumonitis or other inflammatory process #3. History of diabetes mellitus #4. History of hyperlipidemia #5. Prior history of tobacco use #6. Obesity #7. History of posttraumatic stress disorder #8. History of marijuana use Plan: Continue current medical treatment, will switch to prednisone twice Solu-Medrol, continue same antibiotics, send a sputum for culture, no fever or chills, but still quite bronchospastic and congested, not quite back to baseline, anticipate another 24-48 hour treatment. I performed a history & physical examination of the patient and discussed their management with my nurse practitioner, Oksana Hopkins. I reviewed the nurse practitioner's note and agree with the documented findings and plan of care. Lung sounds are positive for diminished breath sounds. The findings and the impression was discussed with the patient. I attest to the documentation by the nurse practitioner. Time with Patient: Less than 30
[2019-04-21] MEDS: methylPREDNISolone SOD SUCCI 125 MG/2 ML VIAL IV SCH ×2 (13:10→17:34)
[2019-04-21] MEDS: LEVOFLOXACIN 750 MG TAB PO SCH (15:46)
[2019-04-21 17:21] LABS: Glucose,Whole Blood 216 mg/dL (75-99)
[2019-04-21 17:44] LABS: Hemoglobin A1C 7.6 % (4.0-6.0)
[2019-04-21 20:07] LABS: Glucose,Whole Blood 251 mg/dL (75-99)
[2019-04-22] MEDS: methylPREDNISolone SOD SUCCI 125 MG/2 ML VIAL IV SCH ×4 (00:53→17:38)
[2019-04-22] MEDS: PIPERACILLIN-TAZOBACTAM 3.375 GM in SODIUM CHLORIDE 0.9% 100 ML IVPB SCH ×3 (00:53→15:26)
[2019-04-22] MEDS: IPRATROPIUM-ALBUTEROL 3 ML NEB INHALATION SCH ×4 (06:56→19:10)
[2019-04-22] MEDS: SYMBICORT 160-4.5 MCG INHALER INHALATION SCH ×2 (06:56→19:10)
[2019-04-22 07:16] LABS: Glucose,Whole Blood 272 mg/dL (75-99)
[2019-04-22] MEDS: INSULIN ASPART (NovoLOG) 100 UNIT/ML VIAL SQ SCH ×4 (07:41→21:15)
[2019-04-22] MEDS: ENOXAPARIN 40 MG/0.4 ML SYRINGE SQ SCH (07:41)
[2019-04-22 11:53] LABS: Glucose,Whole Blood 291 mg/dL (75-99)
--- NOTE | 2019-04-22 13:50 | PN ---
PROGRESS NOTE PULMONARY/CRITICAL CARE PROGRESS NOTE: DATE OF SERVICE: 04/22/2019 This is a 69-year-old gentleman admitted with a diagnosis of COPD exacerbation complicated by purulent tracheobronchitis. The patient has a history of diabetes, hyperlipidemia, prior tobacco use, obesity, PTSD, and chronic marijuana use. The patient was seen in consultation on April 19. The patient appears to be improving. The patient is less short of breath. He is still not back to baseline. He does have wheezing, chest tightness and shortness of breath, particularly when he exerts himself. Clinically, he looks much better. The chest x-ray did show some patchy areas of pneumonitis or another inflammatory lung process. He has not really behaving like somebody with pneumonia. Current vital signs are reviewed. Temperature is 98.8, heart rate 96, respiratory rate 18, blood pressure 146/80 mean 102, 2 L saturation 91%. Appears in no acute distress. HEENT: Examination is grossly unremarkable. Mucous membranes are moist. No oral lesions. NECK: Supple. Full range of motion. No adenopathy or thyromegaly. CARDIOVASCULAR: Examination reveals regular rhythm and rate. Heart rate about 90 beats per minute. S1, S2 normal. Heart sounds are distant. LUNGS: Reveal diffuse inspiratory and expiratory wheezes and rhonchi. No crackles. There is prolongation on forced maneuver. The patient is improved but not quite ready to be discharged. ABDOMEN: Obese, bowel sounds are heard. EXTREMITIES: Intact. No cyanosis, clubbing, or edema. SKIN: Without rash. NEUROLOGIC: Examination is brief but nonfocal. LABS: Reviewed. Nothing new from today. Microbiologic studies are negative. Medications are reviewed. He is on appropriate medications including Symbicort, DuoNeb, Levaquin, and Solu-Medrol. The patient is also on Zosyn. ASSESSMENT: 1. Chronic obstructive pulmonary disease exacerbation complicated by purulent tracheobronchitis without kimberly pneumonia. 2. Possible patchy areas of pneumonitis on chest x-ray. 3. History of diabetes mellitus. 4. History of hyperlipidemia. 5. Prior history of tobacco use. 6. Obesity. 7. History of PTSD. 8. History of marijuana use. PLAN: The patient will have a chest x-ray in the morning. No additional recommendations are made. Prognosis is guarded. The patient will likely be discharged home on Wednesday. Will continue with medications including bronchodilators, steroids, and antibiotics. MMODL / IJN: [id number] /
[2019-04-22] MEDS: LEVOFLOXACIN 750 MG TAB PO SCH (15:26)
[2019-04-22 16:45] LABS: Glucose,Whole Blood 268 mg/dL (75-99)
[2019-04-22 20:10] LABS: Glucose,Whole Blood 283 mg/dL (75-99)
--- NOTE | 2019-04-22 23:31 | P.PN ---
Subjective Progress Note Date: 04/21/19 Principal diagnosis: Acute COPD exacerbation with purulent tracheobronchitis This is a 69-year-old patient of Dr. Joe Paige. Chronic stable medical conditions include diabetes, Eva arthritis, GERD. For 3 days patient started becoming increasingly short of breath. Cough with green sputum. Positive fever and chills. Decreased appetite. Wheezing. Not getting better. Getting worse.presents to ER. INVESTIGATIONS, reviewed in the clinical context: White count 9.6 include 13.2 platelets 363 potassium 4.2 bun 12 creatinine 0.54 ProBNP 242 Accu-Cheks 264 Influenza type A, type B-both negative Chest x-ray film personally reviewed by me-bilateral scattered infiltrates 04/20/2019 Patient is currently sitting in the chair comfortably. Currently saturating on oxygen via nasal cannula at 3 L. Continued on antibiotics in the form of Levaquin, Zosyn and Tamiflu. Cultures showed no growth. No complaints of chest pain. No fever no chills. No headache or dizziness or lightheadedness. No nausea vomiting or abdominal pain or diarrhea. pro calcitonin not elevated. 04/21/2019 Patient is currently sitting in a chair. Still having shortness of breath and wheezing and diminished air entry bilaterally. Patient was restarted on IV steroids. Currently being continued on antibiotics no cough Zosyn. Continued on DuoNeb's and oxygen therapy where nausea cannula. Patient has been afebrile. IV fluids have been discontinued. Otherwise denied any nausea vomiting or abdominal pain. Tolerating oral diet. No headache or dizziness or lightheadedness. Current medications reviewed. Objective - Vital Signs Vital signs: Vital Signs Temp 97.8 F 04/21/19 19:17 Pulse 103 H 04/21/19 21:02 Resp 18 04/21/19 19:17 BP 143/93 04/21/19 19:17 Pulse Ox 92 L 04/21/19 19:17 Intake & Output 04/21/19 04/21/19 04/22/19 06:59 18:59 06:59 Intake Total 296 Balance 296 Weight 152.8 kg Intake: Oral 296 Other: Voiding Method Urinal # Voids 1 3 - Exam GENERAL: [BMI 46.1, sitting up tired. EYES: Pupils equal. Conjunctiva normal. HEENT: External appearance of nose and ears normal, oral cavity grossly normal. NECK: JVD not raised; masses not palpable. HEART: First and second heart sounds are normal; no edema. LUNGS: Nonlabored breathing, decreased breath sounds prolonged expiration and wheezing. ABDOMEN: Soft, nontender, liver spleen not palpable, no masses palpable. PSYCH: [Alert and oriented x3; mood and affect anxious l. NEUROLOGICAL: Cranial nerves grossly intact; no facial asymmetry, power and sensation grossly intact. LYMPHATICS: No lymph nodes palpable in the axilla and neck - Labs CBC & Chem 7: 04/21/19 07:48 04/21/19 07:48 Labs: Abnormal Lab Results - Last 24 Hours (Table) 04/21/19 04/21/19 04/21/19 Range/Units 07:05 07:48 07:48 Plt Count 500 H (150-450) k/uL Creatinine 0.63 L (0.66-1.25) mg/dL Glucose 142 H (74-99) mg/dL POC Glucose (mg/dL) 127 H (75-99) mg/dL Hemoglobin A1c (4.0-6.0) % 04/21/19 04/21/19 04/21/19 Range/Units 07:48 12:10 17:16 Plt Count (150-450) k/uL Creatinine (0.66-1.25) mg/dL Glucose (74-99) mg/dL POC Glucose (mg/dL) 168 H 216 H (75-99) mg/dL Hemoglobin A1c 7.6 H (4.0-6.0) % 04/21/19 Range/Units 20:06 Plt Count (150-450) k/uL Creatinine (0.66-1.25) mg/dL Glucose (74-99) mg/dL POC Glucose (mg/dL) 251 H (75-99) mg/dL Hemoglobin A1c (4.0-6.0) % Microbiology - Last 24 Hours (Table) 04/18/19 10:48 Blood Culture - Preliminary Blood No Growth after 72 hours Assessment and Plan Assessment: -Acute COPD exacerbation in an ex-smoker -Bilateral scattered infiltrates most suggestive of viral pneumonitis, bacterial infection cannot be ruled out -Diabetes mellitus type 2, uncontrolled with hyperglycemia -Hyperlipidemia - Morbid obesity BMI 51.2 - PTSD - History of marijuana use - DVT prophylaxis. Plan: Started on IV Zosyn and Levaquin. DuoNeb. Symbicort was added. Patient was continued on IV hydration. We will discontinue IV fluids. Patient is tolerating oral diet.. Oral steroids. will discontinue Tamiflu also. Influenza A and B PCR-. Home medications resumed. Accu-Cheks will be followed. Lovenox for DVT prophylaxis. Care was discussed with the patient question answered. Pulmonary is following. Time with Patient: Greater than 30
--- NOTE | 2019-04-22 23:34 | P.PN ---
Subjective Progress Note Date: 04/22/19 Principal diagnosis: Acute COPD exacerbation with purulent tracheobronchitis This is a 69-year-old patient of Dr. Joe Paige. Chronic stable medical conditions include diabetes, Eva arthritis, GERD. For 3 days patient started becoming increasingly short of breath. Cough with green sputum. Positive fever and chills. Decreased appetite. Wheezing. Not getting better. Getting worse.presents to ER. INVESTIGATIONS, reviewed in the clinical context: White count 9.6 include 13.2 platelets 363 potassium 4.2 bun 12 creatinine 0.54 ProBNP 242 Accu-Cheks 264 Influenza type A, type B-both negative Chest x-ray film personally reviewed by me-bilateral scattered infiltrates 04/20/2019 Patient is currently sitting in the chair comfortably. Currently saturating on oxygen via nasal cannula at 3 L. Continued on antibiotics in the form of Levaquin, Zosyn and Tamiflu. Cultures showed no growth. No complaints of chest pain. No fever no chills. No headache or dizziness or lightheadedness. No nausea vomiting or abdominal pain or diarrhea. pro calcitonin not elevated. 04/21/2019 Patient is currently sitting in a chair. Still having shortness of breath and wheezing and diminished air entry bilaterally. Patient was restarted on IV steroids. Currently being continued on antibiotics no cough Zosyn. Continued on DuoNeb's and oxygen therapy where nausea cannula. Patient has been afebrile. IV fluids have been discontinued. Otherwise denied any nausea vomiting or abdominal pain. Tolerating oral diet. No headache or dizziness or lightheadedness. 04/22/2019 Patient's breathing status is better today. Still having exertional shortness of breath and wheezing. Currently being continued on IV steroids methylprednisolone 60 mg every 6 hourly and DuoNeb's. Also on antibiotics. Laboratory data reviewed. as of fever or chills. No nausea vomiting or abdominal pain or diarrhea. Current medications reviewed. Objective - Vital Signs Vital signs: Vital Signs Temp 98.1 F 04/22/19 19:02 Pulse 110 H 04/22/19 19:22 Resp 18 04/22/19 19:10 BP 125/78 04/22/19 19:02 Pulse Ox 92 L 04/22/19 19:02 Intake & Output 04/22/19 04/22/19 04/23/19 06:59 18:59 06:59 Output Total 450 Balance -450 Output: Urine 450 Other: Voiding Method Urinal Urinal # Voids 2 - Exam GENERAL: [BMI 46.1, sitting up tired. EYES: Pupils equal. Conjunctiva normal. HEENT: External appearance of nose and ears normal, oral cavity grossly normal. NECK: JVD not raised; masses not palpable. HEART: First and second heart sounds are normal; no edema. LUNGS: Nonlabored breathing, decreased breath sounds prolonged expiration and wheezing. ABDOMEN: Soft, nontender, liver spleen not palpable, no masses palpable. PSYCH: [Alert and oriented x3; mood and affect anxious l. NEUROLOGICAL: Cranial nerves grossly intact; no facial asymmetry, power and sensation grossly intact. LYMPHATICS: No lymph nodes palpable in the axilla and neck - Labs CBC & Chem 7: 04/21/19 07:48 04/21/19 07:48 Labs: Abnormal Lab Results - Last 24 Hours (Table) 04/22/19 04/22/19 04/22/19 Range/Units 07:14 11:52 16:44 POC Glucose (mg/dL) 272 H 291 H 268 H (75-99) mg/dL 04/22/19 Range/Units 20:09 POC Glucose (mg/dL) 283 H (75-99) mg/dL Microbiology - Last 24 Hours (Table) 04/18/19 10:48 Blood Culture - Preliminary Blood No Growth after 96 hours Assessment and Plan Assessment: -Acute COPD exacerbation in an ex-smoker -Bilateral scattered infiltrates most suggestive of viral pneumonitis, bacterial infection cannot be ruled out -Diabetes mellitus type 2, uncontrolled with hyperglycemia -Hyperlipidemia - Morbid obesity BMI 51.2 - PTSD - History of marijuana use - DVT prophylaxis. Plan: Started on IV Zosyn and Levaquin. DuoNeb. Symbicort was added. Discontinued IV fluids.. Patient is tolerating oral diet.. Continue with IV steroids. Discontinued Tamiflu. Influenza A and B PCR-. Home medications resumed. Accu-Cheks will be followed. Lovenox for DVT prophylaxis. Care was discussed with the patient question answered. Pulmonary is following. Time with Patient: Greater than 30
[2019-04-22 23:46] LABS: Glucose,Whole Blood 284 mg/dL (75-99)
[2019-04-23] MEDS: INSULIN DETEMIR (LEVEMIR) 100 UNIT/ML SYR SQ SCH ×2 (00:18→20:28)
[2019-04-23] MEDS: methylPREDNISolone SOD SUCCI 125 MG/2 ML VIAL IV SCH ×5 (00:18→23:41)
[2019-04-23] MEDS: PIPERACILLIN-TAZOBACTAM 3.375 GM in SODIUM CHLORIDE 0.9% 100 ML IVPB SCH ×4 (00:18→23:41)
--- NOTE | 2019-04-23 06:40 | XR ---
EXAMINATION TYPE: XR chest 2V DATE OF EXAM: 04/23/2019 HISTORY: pneumonia. REFERENCE: Previous study dated 04/19/2019. FINDINGS: Interstitial changes likely result. The heart is not enlarged. The lungs are clear. Pleural spaces are clear. IMPRESSION: NO ACTIVE INTRATHORACIC DISEASE.
[2019-04-23 07:07] LABS: Glucose,Whole Blood 228 mg/dL (75-99)
[2019-04-23] MEDS: SYMBICORT 160-4.5 MCG INHALER INHALATION SCH ×2 (07:48→20:37)
[2019-04-23] MEDS: IPRATROPIUM-ALBUTEROL 3 ML NEB INHALATION SCH ×4 (07:48→20:37)
[2019-04-23] MEDS: INSULIN ASPART (NovoLOG) 100 UNIT/ML VIAL SQ SCH ×4 (08:04→20:28)
[2019-04-23] MEDS: ENOXAPARIN 40 MG/0.4 ML SYRINGE SQ SCH (08:04)
[2019-04-23 11:46] LABS: Glucose,Whole Blood 273 mg/dL (75-99)
--- NOTE | 2019-04-23 12:38 | P.PN ---
Subjective Progress Note Date: 04/23/19 Principal diagnosis: Acute exacerbation of chronic obstructive pulmonary disease, Hyperactive tracheobronchitis. The patient is seen today 04/23/2019 in follow-up on the regular medical floor. He is currently sitting up in a chair at the bedside. Awake and alert in no acute distress. Chest x-ray shows improved aeration. He is maintaining good O2 saturation in the 90s on 2 L/m per nasal cannula. He's been afebrile. Hemodynamically stable. Blood and sputum cultures reveal no growth. Blood glucose 273. He remains on DuoNeb inhalations, Symbicort, IV Solu-Medrol. Ant ibiotics in the form of Levaquin and Zosyn. Objective - Vital Signs Vital signs: Vital Signs Temp 97.8 F 04/23/19 07:21 Pulse 104 H 04/23/19 12:05 Resp 18 04/23/19 07:21 BP 152/94 04/23/19 07:21 Pulse Ox 92 L 04/23/19 07:21 Intake & Output 04/22/19 04/23/19 04/23/19 18:59 06:59 18:59 Output Total 500 Balance -500 Output: Urine 500 Other: Voiding Method Urinal Urinal Urinal # Voids 2 - Exam GENERAL EXAM: Alert, active, pleasant 69-year-old on 2 L nasal cannula, comfortable in no apparent distress. HEAD: Normocephalic. EYES: Normal reaction of pupils, equal size. NOSE: Clear with pink turbinates. THROAT: No erythema or exudates. NECK: No masses, no JVD. CHEST: No chest wall deformity. LUNGS: Equal air entry with no crackles, wheeze, rhonchi or dullness. CVS: S1 and S2 normal with no audible murmur, regular rhythm. ABDOMEN: No hepatosplenomegaly, normal bowel sounds, no guarding or rigidity. SPINE: No scoliosis or deformity SKIN: No rashes CENTRAL NERVOUS SYSTEM: No focal deficits, tone is normal in all 4 extremities. EXTREMITIES: There is no peripheral edema. No clubbing, no cyanosis. Peripheral pulses are intact. - Labs CBC & Chem 7: 04/21/19 07:48 04/21/19 07:48 Labs: Abnormal Lab Results - Last 24 Hours (Table) 04/22/19 04/22/19 04/22/19 Range/Units 16:44 20:09 23:45 POC Glucose (mg/dL) 268 H 283 H 284 H (75-99) mg/dL 04/23/19 04/23/19 Range/Units 07:05 11:44 POC Glucose (mg/dL) 228 H 273 H (75-99) mg/dL Microbiology - Last 24 Hours (Table) 04/18/19 10:48 Blood Culture - Preliminary Blood No Growth after 96 hours Assessment and Plan Assessment: 1 Acute exacerbation of chronic obstructive pulmonary disease, By purulent tr acheobronchitis. No clear evidence of pneumonia. Chest x-ray has cleared. 2 History of chronic tobacco dependence 3 History of marijuana use 4 Posttraumatic stress disorder 5 Diabetes mellitus 6 Hyperlipidemia 7 Obesity Plan: The patient was seen and evaluated by Dr. Kemp. He is improved from the pulmonary standpoint and could be discharged once cleared medically. Recommend complete a course of antibiotics. Complete prednisone burst and taper starting at 40 mg daily for 4 days. Continue on Symbicort and bronchodilators. He should follow-up in our office in 1-2 weeks. We'll perform full pulmonary function testing to evaluate the severity of his COPD and make further recommend ations regarding maintenance medications. I, the cosigning physician, performed a history & physical examination of the patient. Lungs sounds with faint end expiratory wheeze, diminished. Maintaining good O2 saturations in the 90s on 2 L/m per nasal cannula. I discussed the asse ssment and plan of care with my nurse practitioner, Sheba Siegel. I attest to the above note as dictated by her.
[2019-04-23] MEDS: LEVOFLOXACIN 750 MG TAB PO SCH (16:08)
[2019-04-23 16:51] LABS: Glucose,Whole Blood 254 mg/dL (75-99)
[2019-04-23 19:51] LABS: Glucose,Whole Blood 298 mg/dL (75-99)
[2019-04-23 20:29] VITALS: TEMP 97.9
--- NOTE | 2019-04-24 00:04 | P.PN ---
Subjective Progress Note Date: 04/23/19 Principal diagnosis: Acute COPD exacerbation with purulent tracheobronchitis This is a 69-year-old patient of Dr. Joe Paige. Chronic stable medical conditions include diabetes, Eva arthritis, GERD. For 3 days patient started becoming increasingly short of breath. Cough with green sputum. Positive fever and chills. Decreased appetite. Wheezing. Not getting better. Getting worse.presents to ER. INVESTIGATIONS, reviewed in the clinical context: White count 9.6 include 13.2 platelets 363 potassium 4.2 bun 12 creatinine 0.54 ProBNP 242 Accu-Cheks 264 Influenza type A, type B-both negative Chest x-ray film personally reviewed by me-bilateral scattered infiltrates 04/20/2019 Patient is currently sitting in the chair comfortably. Currently saturating on oxygen via nasal cannula at 3 L. Continued on antibiotics in the form of Levaquin, Zosyn and Tamiflu. Cultures showed no growth. No complaints of chest pain. No fever no chills. No headache or dizziness or lightheadedness. No nausea vomiting or abdominal pain or diarrhea. pro calcitonin not elevated. 04/21/2019 Patient is currently sitting in a chair. Still having shortness of breath and wheezing and diminished air entry bilaterally. Patient was restarted on IV steroids. Currently being continued on antibiotics no cough Zosyn. Continued on DuoNeb's and oxygen therapy where nausea cannula. Patient has been afebrile. IV fluids have been discontinued. Otherwise denied any nausea vomiting or abdominal pain. Tolerating oral diet. No headache or dizziness or lightheadedness. 04/22/2019 Patient's breathing status is better today. Still having exertional shortness of breath and wheezing. Currently being continued on IV steroids methylprednisolone 60 mg every 6 hourly and DuoNeb's. Also on antibiotics. Laboratory data reviewed. as of fever or chills. No nausea vomiting or abdominal pain or diarrhea. 04/23/2019 Patient is currently sitting in the chair today. Still having exertional dyspnea and is requiring oxygen with another cannula 2 L. Currently being continued on IV steroids and DuoNeb's. Bilateral air entry is much improved. Also on antibiotics the form of Levaquin and Zosyn. Continue with antibiotics for a total of 5-7 days. will evaluate for home oxygen tomorrow. Anticipate discharged in next 24-48 hours. Hyperglycemia due to steroids. Continue insulin sliding scale and started on Levemir 10 units daily at bedtime. Current medications reviewed. Objective - Vital Signs Vital signs: Vital Signs Temp 98.9 F 04/23/19 15:00 Pulse 101 H 04/23/19 16:04 Resp 19 04/23/19 15:00 BP 155/78 04/23/19 15:00 Pulse Ox 96 04/23/19 15:55 Intake & Output 04/22/19 04/23/19 04/23/19 18:59 06:59 18:59 Output Total 500 Balance -500 Output: Urine 500 Other: Voiding Method Urinal Urinal Urinal # Voids 2 3 - Exam GENERAL: [BMI 46.1, sitting up tired. EYES: Pupils equal. Conjunctiva normal. HEENT: External appearance of nose and ears normal, oral cavity grossly normal. NECK: JVD not raised; masses not palpable. HEART: First and second heart sounds are normal; no edema. LUNGS: Nonlabored breathing, decreased breath sounds prolonged expiration and minimal wheezing. ABDOMEN: Soft, nontender, liver spleen not palpable, no masses palpable. PSYCH: [Alert and oriented x3; mood and affect anxious l. NEUROLOGICAL: Cranial nerves grossly intact; no facial asymmetry, power and sensation grossly intact. LYMPHATICS: No lymph nodes palpable in the axilla and neck - Labs CBC & Chem 7: 04/21/19 07:48 04/21/19 07:48 Labs: Abnormal Lab Results - Last 24 Hours (Table) 04/22/19 04/22/19 04/23/19 Range/Units 20:09 23:45 07:05 POC Glucose (mg/dL) 283 H 284 H 228 H (75-99) mg/dL 04/23/19 04/23/19 Range/Units 11:44 16:49 POC Glucose (mg/dL) 273 H 254 H (75-99) mg/dL Microbiology - Last 24 Hours (Table) 04/18/19 10:48 Blood Culture - Preliminary Blood No Growth after 120 hours Assessment and Plan Assessment: -Acute COPD exacerbation in an ex-smoker -Bilateral scattered infiltrates most suggestive of viral pneumonitis, possible bacterial infection/pneumonia cannot be ruled out -Diabetes mellitus type 2, uncontrolled with hyperglycemia -Hyperlipidemia - Morbid obesity BMI 51.2 - PTSD - History of marijuana use - DVT prophylaxis. Plan: Started on IV Zosyn and Levaquin. DuoNeb. Symbicort was added. Discontinued IV fluids.. Patient is tolerating oral diet.. Continue with IV steroids. Discontinued Tamiflu. Influenza A and B PCR-. Home medications resumed. Accu-Cheks will be followed. Lovenox for DVT prophylaxis. Home oxygen evaluation. Care was discussed with the patient question answered. Pulmonary is following. Time with Patient: Greater than 30
[2019-04-24] MEDS: methylPREDNISolone SOD SUCCI 125 MG/2 ML VIAL IV SCH ×2 (05:41→11:32)
[2019-04-24 06:55] LABS: Glucose,Whole Blood 239 mg/dL (75-99)
[2019-04-24] MEDS: IPRATROPIUM-ALBUTEROL 3 ML NEB INHALATION SCH ×3 (08:44→16:11)
[2019-04-24] MEDS: SYMBICORT 160-4.5 MCG INHALER INHALATION SCH (08:44)
[2019-04-24 09:26] LABS: African American GFR (CKD) >90 (>60 ml/min/1.73 sqM); Anion Gap 11 mmol/L; Blood Urea Nitrogen 23 mg/dL (9-20); Calcium 9.6 mg/dL (8.4-10.2); Carbon Dioxide 26 mmol/L (22-30); Chloride 98 mmol/L (98-107); Glucose 301 mg/dL (74-99); Non-African American GFR(CKD) >90 (>60 ml/min/1.73 sqM); Potassium 5.3 mmol/L (3.5-5.1); Sodium 135 mmol/L (137-145)
[2019-04-24] MEDS: ENOXAPARIN 40 MG/0.4 ML SYRINGE SQ SCH (09:28)
[2019-04-24] MEDS: INSULIN ASPART (NovoLOG) 100 UNIT/ML VIAL SQ SCH ×2 (09:28→12:45)
[2019-04-24] MEDS: PIPERACILLIN-TAZOBACTAM 3.375 GM in SODIUM CHLORIDE 0.9% 100 ML IVPB SCH (09:29)
[2019-04-24 09:50] VITALS: BMI 51.2
--- NOTE | 2019-04-24 10:07 | US ---
EXAMINATION TYPE: US venous doppler duplex LE DATE OF EXAM: 04/24/2019 8:55 AM COMPARISON: NONE CLINICAL HISTORY: Rule out DVT. SIDE PERFORMED: bilateral TECHNIQUE: The lower extremity deep venous system is examined utilizing real time linear array sonog arlette with graded compression, doppler sonography and color-flow sonography. VESSELS IMAGED: External Iliac Vein (EIV) Common Femoral Vein Deep Femoral Vein Greater Saphenous Vein * Femoral Vein Popliteal Vein Small Saphenous Vein * Proximal Calf Veins (* superficial vessels) Morbidly obese patient done portable, difficult for tech to reach in bed. Right Leg: negative for DVT, somewhat limited exam EIV not seen due to large abdomen, proximal calf veins not seen due to above limitations. Left Leg: negative for DVT, somewhat limited exam EIV not seen due to large abdomen, proximal calf veins not seen due to above limitations. Tech unable to reach patient well enough to augment. IMPRESSION: Grayscale, color doppler, spectral doppler imaging performed of the deep veins of the lo wer extremities. There is normal flow, compressibility, vascular waveforms.
[2019-04-24 11:06] VITALS: BP 134/81; RESP 18
[2019-04-24 11:36] LABS: Glucose,Whole Blood 237 mg/dL (75-99)
[2019-04-24] MEDS: LEVOFLOXACIN 750 MG TAB PO SCH (14:01)
--- NOTE | 2019-04-24 15:29 | P.PN ---
Subjective Progress Note Date: 04/24/19 69-year-old with known history of COPD hyperlipidemia and diabetes mellitus who came in for shortness of breath. He was seen by my partner and evaluated for an acute COPD exacerbation. He presented with progressive worsening shortness of breath and he had some fever and chills and cough and congestion and chest tightness. He was bringing up some brownish sputum. His breathing continued to improve. He is feeling much better for now. He does have some chronic edema in lower extremities. For now, he is on Symbicort as maintenance, he is doing DuoNeb nebulized treatments around the clock, he is on IV Solu-Medrol and he was covered also with IV Zosyn as an empiric antibiotic coverage. The Doppler of the lower extremities were negative. The CAT scan of the chest that time of admission showed no evidence of any pulmonary embolism. There was several multifocal groundglass opacities throughout the lungs bilaterally. This patient was being considered for multilobar pneumonia. The f ollow-up chest x-ray that was done on 04/23/2019 showed no acute abnormalities. He is an ex-smoker. Objective - Vital Signs Vital signs: Vital Signs Temp 97.9 F 04/24/19 07:00 Pulse 96 04/24/19 11:47 Resp 18 04/24/19 07:00 BP 134/81 04/24/19 07:00 Pulse Ox 95 04/24/19 07:00 Intake & Output 04/23/19 04/24/19 04/24/19 18:59 06:59 18:59 Intake Total 200 580 Output Total 500 Balance 200 80 Weight 152.8 kg Intake: Intake, IV Titration 100 Amount Piperacillin-Tazobactam 3 100 .375 gm In Sodium Chloride 0.9% 100 ml @ 25 mls/hr IVPB Q8HR [facility] Rx# :[id number] Oral 200 480 Output: Urine 500 Other: Voiding Method Urinal # Voids 3 1 1 - Exam GENERAL EXAM: Alert, active, pleasant 69-year-old on 2 L nasal cannula, comfortable in no apparent distress. HEAD: Normocephalic. EYES: Normal reaction of pupils, equal size. NOSE: Clear with pink turbinates. THROAT: No erythema or exudates. NECK: No masses, no JVD. CHEST: No chest wall deformity. LUNGS: Equal air entry with no crackles, wheeze, rhonchi or dullness. CVS: S1 and S2 normal with no audible murmur, regular rhythm. ABDOMEN: No hepatosplenomegaly, normal bowel sounds, no guarding or rigidity. SPINE: No scoliosis or deformity SKIN: No rashes CENTRAL NERVOUS SYSTEM: No focal deficits, tone is normal in all 4 extremities. EXTREMITIES: There is no peripheral edema. No clubbing, no cyanosis. Peripheral pulses are intact. - Labs CBC & Chem 7: 04/21/19 07:48 04/24/19 08:28 Labs: Abnormal Lab Results - Last 24 Hours (Table) 04/23/19 04/23/19 04/24/19 Range/Units 16:49 19:50 06:53 Sodium (137-145) mmol/L Potassium (3.5-5.1) mmol/L BUN (9-20) mg/dL Glucose (74-99) mg/dL POC Glucose (mg/dL) 254 H 298 H 239 H (75-99) mg/dL 04/24/19 04/24/19 Range/Units 08:28 11:35 Sodium 135 L (137-145) mmol/L Potassium 5.3 H (3.5-5.1) mmol/L BUN 23 H (9-20) mg/dL Glucose 301 H (74-99) mg/dL POC Glucose (mg/dL) 237 H (75-99) mg/dL Microbiology - Last 24 Hours (Table) 04/18/19 10:48 Blood Culture - Final Blood No Growth after 144 hours Assessment and Plan Plan: 1 Acute exacerbation of chronic obstructive pulmonary disease, By purulent tracheobronchitis. No clear evidence of pneumonia. Chest x-ray has cleared. 2 History of chronic tobacco dependence 3 History of marijuana use 4 Posttraumatic stress disorder 5 Diabetes mellitus 6 Hyperlipidemia 7 Obesity Plan Clinically the patient is improved. The patient can be discharged home on a prednisone burst taper, Augmentin to complete a seven-day course. He will also need Symbicort as maintenance 2 puffs twice a day and he will also use albuterol nebulized treatments every 3-4 hours on a when necessary basis for shortness of breath. Outpatient evaluation regarding his COPD including a based on pulmonate function tests. No smoking for now.
[2019-04-24 16:22] VITALS: PULSE 96
--- NOTE | 2019-04-24 16:38 | P.DS ---
Providers Date of admission: 04/18/19 14:34 Attending physician: Maninder Bang Consults: 04/18/19 14:34 Consult Physician Routine Consulting Provider: Carlos Kemp Consult Reason/Comments: Dyspnea, evaluate for multifocal pneumonia Do you want consulting provider notified?: Yes Primary care physician: Joe Paige [facility] Course: Diagnoses: -Acute COPD exacerbation in an ex-smoker -Bilateral scattered infiltrates most suggestive of viral pneumonitis, possible bacterial infection/pneumonia cannot be ruled out -Diabetes mellitus type 2, uncontrolled with hyperglycemia -Hyperlipidemia - Morbid obesity BMI 51.2 - PTSD - History of marijuana use Hospital course: This is a pleasant 69 years old male with past medical history of type 2 diabetes mellitus, osteoarthritis and hernia repair. He is a previous smoker. He follows with Dr. Paige as an outpatient. He presents with respiratory distress of coughing and dyspnea, he was found to have acute COPD exacerbation acute tracheobronchitis, his been evaluated by pulmonary team and he was treated with Zosyn and Levaquin, also demonstrated on steroids and bronchodilators, patient showed interval improvement and on the day of discharge his breathing is improved and he is back to his baseline. He denies dyspnea, no coughing no chest pain. His been cleared for discharge by pulmonary service. Patient will be discharged on short course of oral antibiotics and tapering steroids with a recommendation he follows up as an outpatient with equipment service associate and he agrees Also patient denies chest pain, no nausea vomiting, he is tolerating diet well, no change in urine or bowel habits. No fever. Patient has bilateral foot swelling since admission, bilateral lower extremity ultrasound is ordered which was negative for DVT. Patient has been evaluated for home oxygen and he did not qualify Problems and management plan were discussed with the patient and he verbalized understanding and acceptance Patient was found stable and can be discharged home however he needs follow-up as an outpatient. Patient was instructed to follow up with PCP Dr. Paige within one week and patient agrees patient also instructed to follow up with equipment service associate Dr. Kemp in 1-2 weeks and he agrees. Patient agrees with the appointments made for him with Dr. Paige and Dr. Kemp and said he will follow-up. I discussed the case with Dr. Nichole and recommended he can be discharged on Augmentin for Levaquin, also tapered dose of steroids provided and 3 more day of Lasix which will help lower potassium and the leg swelling, patient is counseled to consume low potassium diet and avoid banana and orange juice and to follow up with his PCP to check his potassium again and he agrees Gen: patient is a AAOx3, no distress, obese CVS: S1-S2, RRR, no murmur Lungs: B/L CTA, no wheezing Abdomen: soft, no distention, no tenderness, positive bowel sounds Extremity: no leg edema or induration Time spent more than 35 minutes Plan - Discharge Summary Discharge Rx Participant: Yes New Discharge Prescriptions: New Levofloxacin [Levaquin] 750 mg PO Q24H #4 tab predniSONE 10 mg PO DIRECTED #40 tab Albuterol Inhaler [Ventolin Hfa Inhaler] 1 - 2 puff INHALATION RT-Q6H PRN #1 inhaler PRN Reason: Shortness Of Breath Or Wheezing Fluticasone/Salmeterol [Airduo Respiclick 232-14 Mcg] 1 puff INHALATION BID 30 Days #1 device Continue glipiZIDE [Glucotrol] 5 mg PO AC-BRKFST Lidocaine 5% Oint [Xylocaine 5% Oint] 1 applic TOPICAL DAILY PRN PRN Reason: Pain Fluticasone Nasal [place] [Flonase Nasal [place]] 1 - 2 spr EA NOSTRIL DAILY PRN PRN Reason: Allergy Symptoms metFORMIN HCL [metFORMIN HCL ER Osmotic] 1,000 mg PO DAILY Atorvastatin [Lipitor] 20 mg PO HS Discontinued Naproxen 500 mg PO BID PRN PRN Reason: Pain Discharge Medication List Atorvastatin [Lipitor] 20 mg PO HS 04/18/19 [History] Fluticasone Nasal [place] [Flonase Nasal [place]] 1 - 2 spr EA NOSTRIL DAILY PRN 04/18/19 [History] Lidocaine 5% Oint [Xylocaine 5% Oint] 1 applic TOPICAL DAILY PRN 04/18/19 [History] glipiZIDE [Glucotrol] 5 mg PO AC-BRKFST 04/18/19 [History] metFORMIN HCL [metFORMIN HCL ER Osmotic] 1,000 mg PO DAILY 04/18/19 [History] Albuterol Inhaler [Ventolin Hfa Inhaler] 1 - 2 puff INHALATION RT-Q6H PRN #1 inhaler 04/24/19 [Rx] Fluticasone/Salmeterol [Airduo Respiclick 232-14 Mcg] 1 puff INHALATION BID 30 Days #1 device 04/24/19 [Rx] Levofloxacin [Levaquin] 750 mg PO Q24H #4 tab 04/24/19 [Rx] predniSONE 10 mg PO DIRECTED #40 tab 04/24/19 [Rx] Follow up Appointment(s)/Referral(s): Joe Paige MD [Primary Care Provider] - 04/28/19 10:45 am (Recommend to check her potassium level with your Doctor ) Carlos Kemp DO [Doctor of Osteopathic Medicine] - 05/05/19 9:00 am (copd , regional sales director) [facility], [NON-STAFF] - As Needed Patient Instructions/Handouts: Viral Pneumonia (ED), Viral Pneumonia (DC), Meal Planning with Diabetes Exchanges (DC), Meal Planning with Diabetes Exchanges (GEN) Activity/Diet/Wound Care/Special Instructions: Diabetic diet, 18 K coronary per day Low potassium diet, try to avoid banana and [place] juice or fruits Activity is limited till you see your doctor Discharge Disposition: HOME WITH HOME HEALTH SERVICES
== END 2019-04-24 17:11 | disposition home health service (06) | DRG 190 ==
LOC: EC 10:27 → 4SSUR 14:34
PROVIDERS: ADMIT Hospitalist; ATTEND Hospitalist
DX: J44.0 Chronic obstructive pulmonary disease with (acute) lower respiratory infection (principal); J12.9 Viral pneumonia, unspecified; Z68.43 Body mass index [BMI] 50.0-59.9, adult; J44.1 Chronic obstructive pulmonary disease with (acute) exacerbation; E66.01 Morbid (severe) obesity due to excess calories; J20.9 Acute bronchitis, unspecified; E11.65 Type 2 diabetes mellitus with hyperglycemia; E78.5 Hyperlipidemia, unspecified; T38.0X5A Adverse effect of glucocorticoids and synthetic analogues, initial encounter; K21.9 Gastro-esophageal reflux disease without esophagitis; M79.89 Other specified soft tissue disorders; M19.90 Unspecified osteoarthritis, unspecified site; F43.10 Post-traumatic stress disorder, unspecified; Z79.84 Long term (current) use of oral hypoglycemic drugs; Z79.1 Long term (current) use of non-steroidal anti-inflammatories (NSAID); Z79.899 Other long term (current) drug therapy; Z71.3 Dietary counseling and surveillance; Z87.891 Personal history of nicotine dependence; Z98.890 Other specified postprocedural states
CPT/HCPCS: 36415; 71046; 71275; 80048; 80053; 83036; 83605; 83880; 84132; 84145; 85025; 85379; 85610; 85730; 87040; 87070; 87205; 87502; 93005; 93970; 94640; 94760; 96365; 96375; 99291